=== PATIENT | female | born 1985 | race Caucasian/White ===

== ENCOUNTER 2020-04-12 12:58 | Outpatient (CLI) | payer OTHER, SELFPAY ==
--- NOTE | ~2020-04-12 | MMUS_ITS ---
EXAMINATION: MM diagnostic nichole BI w keiry, US breast RT limited HISTORY: Right breast lump TECHNIQUE: ML, MLO and cc 3-D tomosynthesis images of both breasts were performed and synthetic 2-D i mages were generated. CAD analysis was submitted and interpreted. High resolution targeted right chris st ultrasound was performed. COMPARISON: None BREAST PARENCHYMAL COMPOSITION: There are scattered areas of fibroglandular density. FINDINGS: MAMMOGRAPHIC FINDINGS: . No suspicious mass, architectural distortion, malignant calcification, skin thickening or retractio n of either breast is evident. ULTRASOUND: 12:00 at area of complaint of palpable mass: Parallel circumscribed 2.6 x 8.3 x 4.5 mm complex mass w ithout internal vascularity or suspicious shadowing, having benign sonographic appearance. IMPRESSION: 1. Probable benign complex mass at 12:00 2. 6 month follow-up right targeted breast ultrasound examination is recommended. BI-RADS category 3, probably benign findings. Reviewed, dictated and finalized at location A. IMPRESSION: 1. Probable benign complex mass at 12:00 2. 6 month follow-up right targeted breast ultrasound examination is recommende d. BI-RADS category 3, probably benign findings.
== END 2020-04-12 12:59 | disposition home or self-care (01) ==
PROVIDERS: PCP Obstetrics & Gynecology; Visit Provider Obstetrics & Gynecology
DX: N63.10 Unspecified lump in the right breast, unspecified quadrant (principal)
CPT/HCPCS: 76642; 77062; 77066; G0279

== ENCOUNTER → 2021-07-02 02:03 | Outpatient (CLI) | payer OTHER, SELFPAY ==
[2021-07-02 17:39] LABS: SARS-CoV-2 RNA PCR Negative
== END ==
PROVIDERS: PCP Obstetrics & Gynecology; Visit Provider Obstetrics & Gynecology
DX: Z01.812 Encounter for preprocedural laboratory examination (principal); Z20.822 Contact with and (suspected) exposure to COVID-19
CPT/HCPCS: C9803; U0003; U0005

== ENCOUNTER 2021-07-05 00:45 | Day surgery (SDC) | payer OTHER, SELFPAY ==
[2021-07-02 13:11] VITALS: BMI 22.6
[2021-07-05 10:20] VITALS: BP 110/76; PULSE 83; RESP 14; TEMP 37.1; O2SAT 100
[2021-07-05 10:32] VITALS: BMI 22.1
[2021-07-05] MEDS: ACETAMINOPHEN 500 MG TABLET 1000 MG PO (10:37)
[2021-07-05] MEDS: LACTATED RINGERS 1,000 ML 30 ML IV CONT (10:40)
--- NOTE | 2021-07-05 11:13 | WPDANESEPPF ---
Anes - Initial Pre Proc Eval Procedure: Operation Date: 07/05/21 12:00 Proposed Procedures p Hysteroscopy with Berenice Ablation - Mahendra Lindsey MD Date/Time: 07/05/21 11:13 Surgeon: Mahendra Lindsey MD Pre Op Diagnosis: menorrhagia Patient Data Age: 35 Gender: F Height: 1.49 m Weight: 48.8 kg Last Vital Signs Temp 37.1 C 07/05/21 10:20 Pulse 83 07/05/21 10:20 Resp 14 07/05/21 10:20 BP 110/76 07/05/21 10:20 Pulse Ox 100 07/05/21 10:20 Allergies Allergy/AdvReac Type Severity Reaction Status Date / Time No Known Allergies Allergy Unknown Verified 07/05/21 10:31 Home Medications Medication Instructions Recorded Confirmed Type No Home Medications 07/02/21 07/02/21 History Patient hx anesthesia problems: none Family hx anesthesia problems: none PMFSH Past Medical History Medical History (Updated 07/05/21 @ 11:14 by Jj Fox DO) Anemia Anxiety Surgical History Surgical History (Updated 07/05/21 @ 11:14 by Jj Fox DO) History of tubal ligation Social History Social History Smoking packs per day: 1 Smoking cigarettes per day: 20.0 Years smoked: 16 Smoking pack-years: 16.00 Smoking status: Current every day smoker Tobacco type: cigarettes Second hand tobacco smoke exposure: Yes Alcohol use details: occasional Substance use: current Substance use type: marijuana Other substance usage details: occasional Last use: 06-11-2021 Living arrangements: with family Spiritual care concerns: No Anes - Eval Final PreProcedure Day of Procedure 07/05/21 11:13 Patient weight: normal Heart: regular rate and rhythm Lungs: clear to auscultation and normal air movement Airway: Mallampati scale class II Neurological: alert and oriented Last oral intake: >/= 8 hours ASA classification: II Emergent: no Anesthetic plan: proceed Anesthesia type and monitoring: general GIVS and standard monitoring Informed Consent: The patient's anesthetic plan and its attendant risks and benefits were discussed with the patient/family/POA. Questions were solicited and answers provided to the satisfaction of the patient/family/POA.
--- NOTE | 2021-07-05 12:00 | WPDHPUPDATE1 ---
History and Physical Update Update Date/Time: 07/05/21 12:00 History and Physical has been reviewed, including an updated exam of the patient. There are NO changes in the patient's condition. Risks, benefits, and alternatives have been discussed and questions answered. Patient agrees to proceed with procedure.
[2021-07-05 12:43] VITALS: BP 121/81; PULSE 75; RESP 18; O2SAT 100
--- NOTE | 2021-07-05 13:00 | W.PM.PROC2 ---
Procedure Note - Detailed Date of Procedure 07/05/21 Pre-op Diagnosis menorrhagia Post-op Diagnosis same Procedure Performed endometrial ablation with hysteroscopy d&c Surgeon Mahendra Lindsey MD Anesthesia MAC Indications Severe menorrhagia Findings Normal vulva vagina and cervix. Normal endometrium. Description of Procedure The patient was taken to the operating room. She was prepped and draped in the dorsal lithotomy position after induction of mac anesthesia. A speculum was placed in the vagina. Cervix grasped with a tenaculum. The cervix was dilated to about 1 cm. The hysteroscope was inserted. The above findings were noted. Endometrial curettage was performed with a medium-size curette. All surfaces of the endometrium were affected by the curettage. The specimens were collected and sent to pathology. Measurements were taken of the uterus and cervix. The uterine length was then entered into the hand piece of the Berenice device. The device was inserted into the intrauterine cavity. The array of the device was expanded. The balloon cuff was inflated. A good seal was achieved. The energy and safety cycles were initiated and completed. The array was collapsed and the instrument was withdrawn after deflating the balloon cuff. Hysteroscope was reinserted. Above findings were noted. The hysteroscope was removed. The patient tolerated the procedure well. The speculum and tenaculum were removed. She was taken to recovery in stable condition. Sponge lap and needle counts were correct x2. Estimated Blood Loss -5.0 Pathology yes Complications No immediate complications Condition stable Disposition same day
[2021-07-05] MEDS: oxyCODONE HCL (*CRX) 5 MG TAB IR PO (13:11)
[2021-07-05 13:15] VITALS: BP 140/90; PULSE 62; RESP 20
[2021-07-05] MEDS: fentaNYL CITRATE INJ (*CRX) 100 MCG/2 ML VIAL 25 MCG IV PUSH ×4 (13:42→14:07)
[2021-07-05 13:45] VITALS: BP 126/96; PULSE 64; RESP 20
[2021-07-05 14:15] VITALS: BP 143/88; PULSE 66; RESP 20
== END 2021-07-05 14:24 | disposition home or self-care (01) ==
PROVIDERS: Visit Provider Obstetrics & Gynecology
PROC: 0U5B8ZZ Destruction of Endometrium, Via Natural or Artificial Opening Endoscopic (ICD-10-PCS; CPT 58563; principal; 2021-07-05 12:00)
DX: N92.0 Excessive and frequent menstruation with regular cycle (principal); D64.9 Anemia, unspecified; F41.8 Other specified anxiety disorders; F12.90 Cannabis use, unspecified, uncomplicated; F17.210 Nicotine dependence, cigarettes, uncomplicated
CPT/HCPCS: 58563; 88305; A9270; J2250; J2405; J2704; J3010; J7030; J7120

== ENCOUNTER 2025-06-30 19:27 | Emergency (ER) | payer MEDICAID, SELFPAY ==
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
--- OUTSIDE RECORDS SUMMARY | 2025-06-30 19:29 | XMS_ITS | Clinical Summary ---
Author Organization [facility] Last Size Address [address] [place] [address] Care Team Providers Care Quarter Backer Name Role Phone Unavailable Primary Care Provider Unavailabl e Source Comments [facility] Last Size,non-owned Affiliates and Associated Physician Practices is amultiple site organization consisting of ambulatory clinics and hospital sitesin [place], [place], [place]. This disclosure is being madepursuant to the Care Everywhere program and may not contain all information available regarding this patient. Last updated 18.[employer] Last Size Allergies No known active allergies Medications * Be aware that medications may not be up to date on this document. Alwaysverify current medications with the patient. Vit-Fe Fumarate-FA ( VITAMIN) 28-0.8 MG tablet Take 1 tablet by mouth once daily Active gabapentin (NEURONTIN) 300 MG capsule Take 300 mg by mouth 3 times daily Active sertraline (ZOLOFT) 100 MG tablet Take 150 mg by mouth once daily Active Active Problems Problem Noted Date Diagnosed Date Polyhydramnios, antepartum complication 04/01/20 18 Encounter for supervision of normal first in third trimester 04/01/2018 Social History Tobacco Use Types Packs/Day Years Used Date Smoking Tobacco: Never Assessed Comments No Sex and Gender Information Value Date Recorded Sex Assigned at Not on file Legal Sex Female 2:01 PM CDT Gender Identity Not on file Sexual Orientation Not on file Last Filed Vital Signs Vital Sign Reading Time Taken Comments Blood Pressure 117/62 04/20/2018 12:56 PM CDT Pulse 95 04/20/2018 12:56 PM CDT Temperature - - Respiratory Rate - - Oxygen Saturation - - Inhaled Oxygen Concentration - - Weight - - Height - - Body Mass Index - - Plan of Treatment Health Maintenance Due Date Last Done Comments HIV SCREENING 2001 HEPATITIS C SCREENING 11/03/2004 DTAP/TDAP/TD VACCINES (1 - Tdap) 2005 HEPATITIS B VACCINE (1 of 3 - 19+ 3-dose series) 2005 HPV VACCINE (1 - 3-dose SCDM series) 2013 COVID-19 VACCINE (1 - 2023-2 5 season) 2024 DEPRESSION SCREENING 11/23/2024 INFLUENZA VACCINE (#1) 2025 ZOSTER VACCINE (1 of 2) 2036 HIB VACCINE Aged Out No longer eligi ble based on patient's age to complete this topic MENINGOCOCCAL (Group B) VACC INE SHARED DECISION-MAKING Aged Out No longer eligibl e based on patient's age to complete this topic MENINGOCOCCAL GROUPS A/C/Y/W VACCINE Aged Out No longer eligible b ased on patient's age to complete this topic PNEUMOCOCCAL VACCINE Aged Out No long er eligible based on patient's age to complete this topic Insurance
--- OUTSIDE RECORDS SUMMARY | 2025-06-30 19:29 | XMS_ITS | Clinical Summary ---
Author Organization [facility] Address [address] [place] [address] Care Team Providers Care Chief Passenger Ship Steward/Stewardess Name Role Phone Unavailable Primary Care Provider Unavailabl e Social History Tobacco Use Types Packs/Day Years Used Date Smoking Tobacco: Never Assessed Comments Unknown Sex and Gender Information Value Date Recorded Sex Assigned at Not on file Legal Sex Female 4:40 PM CDT Gender Identity Not on file Sexual Orientation Not on file Plan of Treatment Health Maintenance Due Date Last Done Comments Cervical Cancer Screening Pa p Smear (Age 30 to 64) Every 3 Years 1986 Annual Physical 1989 Hepatitis C 2004 DTaP, Tdap and Td Vaccines ( 1 - Tdap) 2005 Hepatitis B Vaccines (1 of 3 - 19+ 3-dose series) 2005 HPV Vaccines (1 - 3-dose SCD M series) 2013 Cervical Cancer Screening Pa p with HPV Testing (Age 30 to 64) Every 5 Years 2016 Cervical Cancer Screening with HPV 2016 COVID-19 Vaccine (2023-2 5 season) 2024 Meningococcal B Vaccine Aged Out No l onger eligible based on patient's age to complete this topic Meningococcal Vaccine Aged Out No chetna skip eligible based on patient's age to complete this topic Pneumococcal Vaccine: Pediat rics (0 to 5 Years) and At-Risk Patients (6 to 49 Years) Aged Out No longer eligible b ased on patient's age to complete this topic RSV Immunizations Under 20 Months Aged Out No longer eligible based on patient's age to complete this topic Advance Directives Documents on File Type Date Recorded Patient Senior Court Office Assistant Expl anation Advance Directives and Living Will 01/04/2016 12:00 AM ADVANCED DIRECTIVES
--- OUTSIDE RECORDS SUMMARY | 2025-06-30 19:29 | XMS_ITS | Patient Health Record ---
Author Organization [facility] [employer] Address [address] [facility] [address] [place] [address] Care Team Providers Care Medical/Surgery Registered Nurse Name Role Phone Shira Solano Unavailable [phone] Reason For Referral No Information Medications Medication SIG (Take, Route, Frequency, Duration) Notes Start Date End Date Status Escitalopram Oxalate 10 MG Oral Active Acetaminophen-Codeine #3 300-30 MG Oral Active Penicillin V Potassium 500 MG Oral Active Plan Of Treatment No Information
--- OUTSIDE RECORDS SUMMARY | 2025-06-30 19:29 | XMS_ITS ---
Author Organization [facility] Address [address] [place] [address] Care Team Providers Care Lead Investigator Name Role Phone Andrew Alvarez Primary Care Provider [facility] [email or web address], [facility] Unavailable U rose marieailDonato Diaz Unavailable [phone] REASON FOR VISIT Weight Concerns Social History Sex Assigned At : Social History Observation Description Sex Assigned At Female Encounters Encounter Location Date Provider Diagnosis [address] [address] 09/08/2024 Donato Delacruz Plan Of Treatment No Information Progress Notes * Gila NAVADOB: 6 (39 yo F)Acc No.[id number]:09/08/2024 UNLOCKED PROGRESS NOTE Progress Notes Patient: Gila LINARES Provider: Jose Luis Delacruz :1985 A ge:38 Y S ex:Female Date:09/08/2024 Address:[address] [id number] Pcp:Andrew Alvarez Subjective: * Chief Complaints: * 1 . Weight Concerns. * Medical History: Objective: * Vitals: Assessment: Plan: * Treatment: * * Electronic signature of Shamir Delacruz , [id number] on 06/30/2025 at 07:29 PM CDT Sign off status: Pending * Provider: Jose Luis Delacruz Date: 1 Generated for Tiffany roldan/Adams/eTransmitting on: 0 06/30/2025 07:29 PM CDT
[2025-06-30 19:32] VITALS: BP 152/94; PULSE 104; RESP 20; TEMP 36.8; O2SAT 99
--- NOTE | 2025-06-30 19:35 | ED_ITS ---
HPI - Skin/Abscess/Foreign Bdy General Chief complaint: Skin/Abscess/Foreign Body Stated complaint: poison aaliyah Time Seen by Provider: 06/30/25 19:35 Source: patient Mode of arrival: ambulatory Limitations: no limitations History of Present Illness HPI narrative: 39-year-old female presents with complaint of poison aaliyah rash for 3 days. Patient applying calamine lotion with no relief. Reports poison aaliyah to entire body. All systems reviewed and negative except as noted above. Related Data Allergies Allergy/AdvReac Type Severity Reaction Status Date / Time No Known Allergies Allergy Unknown Verified 07/05/21 10:31 [facility] Past Medical History Medical History (Updated 06/30/25 @ 19:41 by Lorrie Acosta NP) Anxiety Anemia Surgical History Surgical History (Updated 07/05/21 @ 11:14 by Jj Fox DO) History of tubal ligation Social History Social History Smoking packs per day: 1 Smoking cigarettes per day: 20.0 Years smoked: 16 Smoking pack-years: 16.00 Smoking status: Current every day smoker Tobacco type: cigarettes Second hand tobacco smoke exposure: Yes Alcohol use details: occasional Substance use: current Substance use type: marijuana Other substance usage details: occasional Last use: 06-11-2021 Living arrangements: with family Spiritual care concerns: No Comments At time of signature, agree with nursing past medical, surgical, social and family history. There is no relevant family history pertinent to the presenting complaint. Exam Narrative: GENERAL: This is a well-nourished, well-developed patient, in no apparent distress. HEAD: normocephalic, atraumatic. EYES: PERRL. Sclera clear/white. Vision is grossly intact. EARS: External ears normal NOSE: External nose normal NECK: Neck supple, non-tender without lymphadenopathy, masses or thyromegaly. CARDIOVASCULAR: Regular rate and rhythm without murmurs, gallops, or rubs. RESPIRATORY: Clear to auscultation. Breath sounds equal bilaterally. No wheezes, rales, or rhonchi. SKIN: warm, Dry, intact, good texture and turgor. erythematous vesicular rash to all extremities, trunk, perineal area, both cheeks NEURO: awake, alert, and oriented to person, place and time. There were no obvious focal neurologic abnormalities. EXTREMITIES: No joint tenderness, effusion, or edema noted. Course Course Level of Care: [facility] Visit Vital Signs Vital signs: Vital Signs Temperature 36.8 C 06/30/25 19:32 Pulse Rate 104 H 06/30/25 19:32 Respiratory Rate 20 06/30/25 19:32 Blood Pressure 152/94 H 06/30/25 19:32 Pulse Oximetry 99 06/30/25 19:32 Oxygen Delivery Room Air 06/30/25 19:32 Temperature 36.8 C 06/30/25 19:32 Pulse Rate 104 H 06/30/25 19:32 Respiratory Rate 20 06/30/25 19:32 Blood Pressure 152/94 H 06/30/25 19:32 Pulse Oximetry 99 06/30/25 19:32 Oxygen Delivery Room Air 06/30/25 19:32 reviewed MDM - Skin/Abscess/Foreign Bdy MDM Narrative Medical decision making narrative: pt given solumedrol IM at [facility]. Will start prednisone taper tomorrow morning. well appearing, nontoxic. Discharge Plan Discharge Clinical Impression: Dermatitis due to plants, including poison aaliyah, sumac, and oak Patient Disposition: Home Condition: Stable Instructions: Poison Aaliyah (ED) Additional Instructions: Take medications as prescribed. Start oral prednisone tomorrow. Hydroxyzine may cause drowsiness. Do not drive while taking this medication. Follow-up with your doctor if symptoms are not improving. Patient Language: Citizen Of [place] Prescriptions: New prednisone 10 mg tablet See Rx Instructions .ROUTE .COMPLEX Qty: 42 0RF Rx Instructions: Take 6 tablets for 2 days Take 5 tablets for 2 days Take 4 tablets for 2 days Take 3 tablets for 2 days Take 2 tablets for 2 days Take 1 tablet for 2 days triamcinolone acetonide 0.1 % cream 1 applic topical BID PRN (Reason: poison aaliyah) Qty: 30 0RF Rx Instructions: Apply sparingly to affected area. Do not apply to face. hydroxyzine HCl 10 mg tablet 10 mg PO Q6-8H PRN (Reason: itching) Qty: 30 0RF Follow-up/Referrals: PHYSICIAN,OPERATIONS VICE PRESIDENT [Primary Care Provider] - Time of Disposition: 19:42
== END 2025-06-30 20:08 | disposition home or self-care (01) ==
PROVIDERS: Emergency Provider Nurse Practitioner Family
DX: L23.7 Allergic contact dermatitis due to plants, except food (principal); F17.210 Nicotine dependence, cigarettes, uncomplicated; F41.9 Anxiety disorder, unspecified
CPT/HCPCS: 96372; 99213; G0463; J2919

== ENCOUNTER 2025-07-04 19:49 | Emergency (ER) | payer MEDICAID, SELFPAY ==
--- OUTSIDE RECORDS SUMMARY | 2025-07-04 19:50 | XMS_ITS | Patient Health Record ---
Author Organization [facility] Address [address] [place] [address] Care Team Providers Care Chief Crew Scheduler Name Role Phone Andrew Alvarez Primary Care Provider Intrinsity [facility], [facility] Unavailable U deyanira DelacruzDucin Unavailable [phone] VikasJanny Unavailable [phone] Lisa Gonzalez Unavailable [phone] Allergies Allergen (clinical drug ingredient) Drug/Non Drug [...] neg OXY neg PCP neg BUP POS 12 Panel Urine Drug Screen Reviewed date:09/28/2024 03:32:30 PM Interpretation: Performing Lab: Notes/Report: THC POS JERZY POS MOP (OPI) neg AMP neg MET neg BAR neg BZO neg MDMA neg MTD neg OXY neg PCP neg BUP neg Test, Urine Reviewed date:08/11/2024 09:17:32 AM Interpretation: Performing Lab: Notes/Report: Test, Urine Neg Negative - Negative 12 Panel Urine Drug Screen Reviewed date:08/11/2024 08:44:04 AM Interpretation: Performing Lab: Notes/Report: THC POS JERZY POS MOP (OPI) NEG AMP NEG MET NEG BAR NEG BZO NEG MDMA NEG MTD NEG OXY NEG PCP NEG BUP POS Medication Assisted Treatmen t (MAT) Buprenorphine, Norbuprenorphine, and Naloxone MS Confirmation, Urine Reviewed date:09/12/2024 08:42:20 AM Interpretation: Performing Lab:[facility], [address] [facility], Phone - [phone], Director - Rodrick Notes/Report: Creatinine 118 Testing Threshold: buprenorphine, 1.0 ng/mL norbuprenorphine, 5.0 ng/mL naloxone, 10 ng/mL This test was developed and its performance characteristics determined by [facility]. It has not been cleared or approved by the Food and Drug Administration. REFERENCE RANGE: Ref Range>=20 BUPRENORPHINE ++POSITIVE++ Buprenorphine 62 Norbuprenorphine 36 N/B Ratio 0.59 >=0.3 OPIATE ANTAGONIST ++POSITIVE++ Naloxone 481 Reason For Referral No Information Medications Medication [...] believe in God, but don't go to taoism Other Social History - Oldest of 10 [...] or Therapist - Used to go to [place] in [phone] Psychiatric Diagnosis(es) - Depression, anxiety, OUD Past [...] believe in God, but don't go to taoism Other Social History - Oldest of 10 [...] or Therapist - Used to go to [place] in [phone] Psychiatric Diagnosis(es) - Depression, anxiety, OUD Past [...] W/U Status Risk Notes Problem Tobacco user (485279892) Nicotine dependence, unspecified, uncomplicated (F17.200) Active confirmed Problem Chronic pain (53283645) Other chronic pain (G89.29) Active confirmed Problem Tobacco dependence (10930499) Tobacco dependence (F17.200) Active confirmed Problem Posttraumatic stress disorder (85061734) PTSD (post-traumatic stress disorder) (F43.10) Active confirmed Problem Generalized anxiety disorder (16898758) ROWAN (generalized anxiety disorder) (F41.1) Active confirmed Problem Cocaine abuse (32251891) Cocaine abuse (F14.10) Active confirmed Problem Major depressive disorder (739175390) MDD (major depressive disorder) (F32.9) Active confirmed Problem Obese class I (finding) (082635032500205) Obesity (BMI 30.0-34.9) (E66.9) Active confirmed Problem Opioid use disorder (6759648534) Opioid use disorder (F11.99) Active confirmed Problem Opioid use disorder (9233953718) Opioid use disorder (F11.90) Active confirmed Vital Signs Heart Rate 76 /min 09/28/2024 Temperature 98.5 degrees Fahrenheit 09/06/2024 Respiratory Rate 16 /min 09/28/2024 Blood pressure diastolic 80 mm Hg 09/28/2024 Oximetry 99 % 09/28/2024 Height 58 in 09/28/2024 Blood pressure systolic 110 mm Hg 09/28/2024 Weight 91.8 lbs 09/28/2024 BMI 19.18 kg/m2 09/28/2024 Encounters Encounter Location Date Provider Diagnosis [facility] [address] [address] 08/11/2024 Lisa Gonzalez Opioid use disorder F11.99 and Nicotine dependence, unspecified, uncomplicated F17.[address] [address] 09/06/2024 Lisa Gonzalez Opioid use disorder F11.99 and Nicotine dependence, unspecified, uncomplicated F17.[address] [address] 09/07/2024 Janny Bean MDD (major depressiv e disorder) F32.9 ; ROWAN (generalized anxiety disorder) F41.1 ; PTSD (post-traumatic stress disorder) F43.10 ; Opioid use disorder F11.90 ; Nicotine dependence, unspecified, uncomplicated F17.200 and Medication management Z79.[address] [address] 09/28/2024 Donato Delacruz Opioid use disorder F11.99 ; Nicotine dependence, unspecified, uncomplicated F17.200 and Cocaine abuse F14.[address] [address] 08/15/2024 Lisa Gonzalez [address] [address] 09/07/2024 Andrew Alvarez [address] [address] 09/07/2024 Andrew Alvarez Contact with and (suspected) exposure to other communicable diseases Z20.[address] [address] 09/07/2024 Janny Bean Assessments Encounter Date Diagnosis [...] or be administered own oral medications per [facility] protocols. Provided informed consent with understanding of [...] possible bipolar disorder - told while in [facility] anxiety sciatica opioid use disorder Surgical History Surgery Date(Month/Year) C- section 2012 c section 2008 C section 2018 Hospitalization History Reason Date(Month/Year) 2nd degree cast to back 2013
--- OUTSIDE RECORDS SUMMARY | 2025-07-04 19:50 | XMS_ITS | Clinical Summary ---
Author Organization [facility] Address [address] [place] [address] Care Team Providers Care Resolution Analyst Name Role Phone Unavailable Primary Care Provider [...] Documents on File Type Date Recorded Patient Back Winder Expl anation Advance Directives and Living Will 01/04/2016 12:00 AM ADVANCED DIRECTIVES
--- OUTSIDE RECORDS SUMMARY | 2025-07-04 19:51 | XMS_ITS ---
Author Organization [facility] Address [address] [place] [address] Care Team Providers Care Public Relations Supervisor Name Role Phone Andrew Alvarez Primary Care Provider [facility], [facility] Unavailable U rose marieailDonato Diaz Unavailable [phone] REASON FOR VISIT Weight Concerns Social History Sex Assigned At : Social History Observation Description Sex Assigned At Female Encounters Encounter Location Date Provider Diagnosis [address] [address] 09/08/2024 Donato Delacruz Plan Of Treatment No Information Progress Notes * Gila NAVADOB: 6 (39 yo F)Acc No.[id number]:09/08/2024 UNLOCKED PROGRESS NOTE Progress Notes Patient: Gila LINARES Provider: Jose Luis Delacruz :1985 A ge:38 Y S ex:Female Date:09/08/2024 Address:[address] [id number] Pcp:Andrew Alvarez Subjective: * Chief Complaints: * 1 . Weight Concerns. * Medical History: Objective: * Vitals: Assessment: Plan: * Treatment: * * Electronic signature of Shamir Delacruz , [id number] on 07/04/2025 at 07:50 PM CDT Sign off status: Pending * Provider: Jose Luis Delacruz Date: 1 Generated for Tiffany roldan/Adams/eTransmitting on: 0 07/04/2025 07:50 PM CDT
--- OUTSIDE RECORDS SUMMARY | 2025-07-04 19:51 | XMS_ITS | Patient Health Record ---
Author Organization [facility] As [employer] Address [address] [facility] [address] [place] [address] Care Team Providers Care Rewards Consultant Name Role Phone Shira Sloano Unavailable [phone] Reason For Referral No Information Medications Medication SIG (Take, Route, Frequency, Duration) Notes Start Date End Date Status Escitalopram Oxalate 10 MG Oral Active Acetaminophen-Codeine #3 300-30 MG Oral Active Penicillin V Potassium 500 MG Oral Active Plan Of Treatment No Information
--- OUTSIDE RECORDS SUMMARY | 2025-07-04 19:51 | XMS_ITS | Clinical Summary ---
Author Organization [facility] [employer] Address [address] [place] [address] Care Team Providers Care Target Aircraft Controller Name Role Phone Unavailable Primary Care Provider Unavailabl e Source Comments [facility] [employer],non-owned Affiliates and Associated Physician Practices is amultiple site organization consisting of ambulatory clinics and hospital sitesin [place], [place], [place] and [place]. This disclosure is being madepursuant to the Care Everywhere program and may not contain all information available regarding this patient. Last updated 18.Desti [employer] Allergies No known active allergies Medications * [...]
--- NOTE | 2025-07-04 19:52 | ED_ITS ---
HPI - General Adult General Chief complaint: Skin/Abscess/Foreign Body Stated complaint: rash Time Seen by Provider: 07/04/25 19:52 Source: patient Mode of arrival: ambulatory Limitations: no limitations History of Present Illness HPI narrative: 39 y/o female presented for c/o poison sumac rash for one week. States she was in a bikini doing yard work and did not know she was exposed to poison sumac. Patient was seen in clinic for the same on 06/30. She was given injection of steroid at this time. She says I am miserable. Continues to endorse itching to the arms, torso, and legs. Pt states she did not fill the prescriptions prescribed on 06/30 due to not having insurance. Related Data Allergies Allergy/AdvReac Type Severity Reaction Status Date / Time No Known Allergies Allergy Unknown Verified 07/04/25 20:06 Review of Systems Review of Systems: CONSTITUTIONAL: Denies body aches, fever, chills, or sweats. EYES: Denies visual changes, redness, or discharge. ENT: Denies rhinorrhea, congestion CARDIOVASCULAR: Denies chest pain, palpitations, or edema. RESPIRATORY: Denies cough or dyspnea. GASTROINTESTINAL: Denies abdominal pain, nausea, vomiting, or diarrhea. SKIN: reports rash MUSCULOSKELETAL: Denies back pain, joint pain, or myalgia. NEUROLOGIC: Denies headache, numbness, tingling, or weakness. [facility] Past Medical History Medical History (Updated 07/04/25 @ 20:04 by Janny Boothe APRN) Anxiety Anemia Surgical History Surgical History (Updated 07/05/21 @ 11:14 by Jj Fox DO) History of tubal ligation Social History Social History Smoking packs per day: 1 Smoking cigarettes per day: 20.0 Years smoked: 16 Smoking pack-years: 16.00 Smoking status: Current every day smoker Tobacco type: cigarettes Second hand tobacco smoke exposure: Yes Alcohol use details: occasional Substance use: current Substance use type: marijuana Other substance usage details: occasional Last use: 06-11-2021 Living arrangements: with family Spiritual care concerns: No Comments At time of signature, I have reviewed and agree with nursing past medical, surgical, social and family history unless otherwise noted. Please see nursing chart for further information. There is no relevant family history pertinent to the presenting complaint Exam Narrative: GENERAL: Well-appearing HEAD: Normocephalic, atraumatic. EYES: conjunctivae clear, and EOMI. ENT: Mucous membranes moist. Oropharynx without edema, erythema or lesions. NECK: Supple. No lymphadenopathy CHEST: Clear to auscultation. HEART: Regular rate and rhythm. SKIN: Warm, dry. erythematous vesicular rash to all extremities, trunk, perineal area, buttocks. NEURO: Alert and oriented x3. Course Course Emergency Course: Patient is aware of diagnosis, understands and agrees to treatment plan. Anticipatory guidance given. Patient agrees to follow-up as directed and is aware of reasons to seek care at the emergency department. Portions of this record may have been created with voice recognition software Level of Care: Express Care Visit Vital Signs Vital signs: Vital Signs Temperature 98.4 F 07/04/25 19:58 Pulse Rate 90 07/04/25 19:58 Respiratory Rate 16 07/04/25 19:58 Blood Pressure 125/86 07/04/25 19:58 Pulse Oximetry 99 07/04/25 19:58 Oxygen Delivery Room Air 07/04/25 19:58 Temperature 98.4 F 07/04/25 19:58 Pulse Rate 90 07/04/25 19:58 Respiratory Rate 16 07/04/25 19:58 Blood Pressure 125/86 07/04/25 19:58 Pulse Oximetry 99 07/04/25 19:58 Oxygen Delivery Room Air 07/04/25 19:58 Reviewed Medical Decision Making MDM Narrative Medical decision making narrative: Discussed physical exam findings. patient states I am miserable. She is advised to fill the prescriptions that were prescribed to her on 06/30. Advised supportive measures and signs/symptoms to go to the ER. Pt is appropriate for outpt treatment and f/u. Differential Diagnosis Differential Diagnosis: Viral exanthema, contact dermatitis, allergic dermatitis, eczema, urticaria, insect bites, impetigo, tinea, folliculitis Vital Signs Vital Signs: Vital Signs Temperature 98.4 F 07/04/25 19:58 Pulse Rate 90 07/04/25 19:58 Respiratory Rate 16 07/04/25 19:58 Blood Pressure 125/86 07/04/25 19:58 Pulse Oximetry 99 07/04/25 19:58 Oxygen Delivery Room Air 07/04/25 19:58 Temperature 98.4 F 07/04/25 19:58 Pulse Rate 90 07/04/25 19:58 Respiratory Rate 16 07/04/25 19:58 Blood Pressure 125/86 07/04/25 19:58 Pulse Oximetry 99 07/04/25 19:58 Oxygen Delivery Room Air 07/04/25 19:58 Discharge Plan Discharge Clinical Impression: Contact dermatitis Patient Disposition: Home Condition: Stable Instructions: Antibiotic Form, Contact Dermatitis (ED) Additional Instructions: Take steroids and cream as previously prescribed. Benadryl every 8 hours as needed. Or you can take Zyrtec according to package directions Cool compresses to the sites of itching, avoid hot water. Avoid scratching to reduce the risk of infection Follow up with your primary care provider as needed Go to the ER for worsening symptoms or concerns (lip, tongue, throat swelling/itching, trouble breathing etc) Patient Language: Mongolian Prescriptions: No Action prednisone 10 mg tablet See Rx Instructions .ROUTE .COMPLEX Qty: 42 0RF Rx Instructions: Take 6 tablets for 2 days Take 5 tablets for 2 days Take 4 tablets for 2 days Take 3 tablets for 2 days Take 2 tablets for 2 days Take 1 tablet for 2 days triamcinolone acetonide 0.1 % cream 1 applic topical BID PRN (Reason: poison rukhsana) Qty: 30 0RF Rx Instructions: Apply sparingly to affected area. Do not apply to face. hydroxyzine HCl 10 mg tablet 10 mg PO Q6-8H PRN (Reason: itching) Qty: 30 0RF Follow-up/Referrals: PHYSICIAN,BRIDGE BUILDER [Primary Care Provider] - Stand Alone Forms: Work/School Release IP Time of Disposition: 20:04
[2025-07-04 19:58] VITALS: BP 125/86; PULSE 90; RESP 16; TEMP 36.9; O2SAT 99
== END 2025-07-04 20:16 | disposition home or self-care (01) ==
PROVIDERS: Emergency Provider Nurse Practitioner Family
DX: L25.9 Unspecified contact dermatitis, unspecified cause (principal); F17.210 Nicotine dependence, cigarettes, uncomplicated
CPT/HCPCS: 99211; G0463

== ENCOUNTER 2025-11-18 17:16 | Emergency (ER) | payer OTHER, SELFPAY ==
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
--- OUTSIDE RECORDS SUMMARY | 2025-11-18 17:17 | XMS_ITS | Clinical Summary ---
Author Organization [facility] [employer] Address [address] [place] [address] Care Team Providers Care Medical Numerical Control Operator Name Role Phone Unavailable Primary Care Provider Unavailabl e Source Comments [facility] [employer],non-owned Affiliates and Associated Physician Practices is amultiple site organization consisting of ambulatory clinics and hospital sitesin [place], [place], [place] and [place]. This disclosure is being madepursuant to the Care Everywhere program and may not contain all information available regarding this patient. Last updated 18.[employer] Allergies No known active allergies Medications * [...] VACCINE (1 - 3-dose SCDM series) 2013 DEPRESSION SCREENING 11/23/2024 COVID-19 VACCINE (1 - 2024-2 6 season) 2025 INFLUENZA VACCINE (#1) 2025 ZOSTER VACCINE (1 [...]
--- OUTSIDE RECORDS SUMMARY | 2025-11-18 17:17 | XMS_ITS | Clinical Summary ---
Author Organization [facility] Address [address] [place] [address] Phone Care Team Providers Care Home Demonstrator Name Role Phone Ronnie Pike MD Primary Care Provider [phone] Medications naproxen (NAPROSYN) 500 MG Tablet Take 1 Tablet by mouth 2 times daily as needed for Mild or more severe pain. 20 Tablet 07/27/2025 Active Social History Tobacco Use Types Packs/Day Years Used Date Smoking Tobacco: Every Day Cigarettes Smokeless Tobacco: Never Tobacco Cessation:Ready to Q uit: Not Asked; Counseling Given: Not Answered Comments Unknown Sex and Gender Information Value Date Recorded Sex Assigned at Not on file Legal Sex Female 1:13 PM CDT Gender Identity Not on file Sexual Orientation Not on file Last Filed Vital Signs Vital Sign Reading Time Taken Comments Blood Pressure 176/97 07/27/2025 1:18 PM CDT Pulse 80 07/27/2025 1:18 PM CDT Temperature 36.8 C (98.2 F) 07/27/2025 1:18 PM CDT Respiratory Rate 18 07/27/2025 1:18 PM CDT Oxygen Saturation 100% 07/27/2025 1:18 PM CDT Inhaled Oxygen Concentration - - Weight 50.7 kg (111 lb 12.4 oz) 07/27/2025 1:18 PM CDT Height 147.3 cm (4' 10) 07/27/2025 1:18 PM CDT Body Mass Index 23.36 07/27/2025 1:18 PM CDT Plan of Treatment Not on file Insurance MEDICAID A[employer]NA [facility] Care Teams Home Demonstrator Relationship Specialty Start Date End Date Ronnie Pike MD [address] [place] [address] [place] [id number] PCP - General Hand Bobbin Cleaner 07/27/25
--- OUTSIDE RECORDS SUMMARY | 2025-11-18 17:17 | XMS_ITS | Patient Health Record ---
Author Organization [facility] Address [address] [place] [address] Phone [phone] Care Team Providers Care Shuttle Fixer Name Role Phone Andrew Alvarez APRN Primary Care Provider [phone] [employer] Document Management software, [facility] Unavailable U navailable Allergies Allergen (clinical drug ingredient) Drug/Non Drug Allergy documented on EMR Reaction Allergy Type Onset Date Status No Known Drug Allergy Unknown Drug Allergy Active Reason For Referral No Information Medications Medication SIG (Take, Route, Frequency, Duration) Notes Start Date End Date Diagnosis (ICD Code) Status Nicotine Mini 4 MG Lozenge 1 lozenge as needed Mouth/Throat every 1-2 hours As needed for smoking cessation, up to 16 lozenges/day 08/11/2024 Nicotine dependence, unspecified, uncomplicated (ICD_10 - F17.200) Active Buprenorphine HCl-Naloxone HCl 8-2 MG Film 1 film under the tongue and allow to dissolve Sublingual 1 film in AM, 1.5 film in PM 09/06/2024 Opioid use disorder (ICD_10 - F11.90) Active Pregabalin 75 MG Capsule 1 capsule Orally twice a day; Duration: 30 days 09/07/2024 ROWAN (generalized anxiety disorder) (ICD_10 - F41.1) Active Sertraline HCl 50 MG Tablet 1 tablet Orally Once a day; Duration: 30 day(s) 09/07/2024 MDD (major depressive disorder) (ICD_10 - F32.9) Active Social History Tobacco Use: Social History Observation Description Date Details (start date - stop date) Current Smoker NA - NA Sex Observation Social History Observation Description Sex Observation Female Sexual Orientation Social History Observation Description Sexual Orientation Straight or heterose xual Gender Identity Social History Observation Description Gender Identity Female Social History Miscellaneous Social Info Question Answer Notes Method of learning: Preferred method of learning: Disc ussion Primary Social History Social Info Question Answer Notes Living Arrangement Living Arrangement: Independent Nilsa ing Is this a supportive environment? Yes Employment Status Employment Status: Unemployed Alcohol Use Alcohol Use Frequency: Never Tobacco Use: Social Info Question Answer Notes Dont use, Tobacco Use/Smoking Are you a current smo ker How many cigarettes a day do you smoke? - Tobacco Control (Standard) Tobacco use: Current smoker Section Notes: - [...] believe in God, but don't go to baptism Other Social History - Oldest of 10 [...] or Therapist - Used to go to [place] [id number] Psychiatric Diagnosis(es) - Depression, anxiety, OUD Past [...] Problems Problem Type SNOMED Code ICD Code Dates Problem Status W/U Status Risk Notes Problem Tobacco user (883686166) Nicotine dependence, unspecified, uncomplicated (F17.200) Added On:12/28 Active confirmed Problem Chronic pain (93244898) Other chronic pain (G89.29) Added On:09/07 Active confirmed Problem Tobacco dependence (80362749) Tobacco dependence (F17.200) Added On:06/11 Active confirmed Problem Posttraumatic stress disorder (99079100) PTSD (post-traumatic stress disorder) (F43.10) Added On:09/07 Active confirmed Problem Generalized anxiety disorder (53439312) ROWAN (generalized anxiety disorder) (F41.1) Added On:09/07 Active confirmed Problem Cocaine abuse (71629225) Cocaine abuse (F14.10) Added On:09/28 Active confirmed Problem Major depressive disorder (239960842) MDD (major depressive disorder) (F32.9) Added On:09/07 Active confirmed Problem Obese class I (finding) (567920347198275) Obesity (BMI 30.0-34.9) (E66.9) Added On:06/11 Active confirmed Problem Opioid use disorder (5013474733) Opioid use disorder (F11.99) Added On:11/27 Active confirmed Problem Opioid use disorder (2884731144) Opioid use disorder (F11.90) Added On:09/10 Active confirmed Plan Of Treatment No Information Medical (General) History Medical History History ICD Code depression possible bipolar disorder - told while in [facility] intermediate anxiety sciatica opioid use disorder Surgical History Surgery Date(Month/Year) C- section 2012 c section 2008 C section 2018 Hospitalization History Reason Date(Month/Year) 2nd degree cast to back 2013
--- OUTSIDE RECORDS SUMMARY | 2025-11-18 17:17 | XMS_ITS | Clinical Summary ---
Author Organization [facility] Address [address] [place] [id number] Care Team Providers Care Gradall Operator Name Role Phone Unavailable Primary Care [...] Cancer Screening with HPV 2016 COVID-19 Vaccine (2024-2 6 season) 2025 Influenza Adult (#1) 2025 Hepatitis A Vaccines Aged Out No long er eligible based on patient's age to complete this topic Meningococcal B Vaccine Aged Out No l [...] Documents on File Type Date Recorded Patient [employer] Expl anation Advance Directives and Living Will 01/04/2016 12:00 AM ADVANCED DIRECTIVES
--- OUTSIDE RECORDS SUMMARY | 2025-11-18 17:18 | XMS_ITS | Data Portability ---
Author Organization [facility] Address [address] [place] [address] [place] [address] Care Team Providers Care Construction Helper Name Role Phone DOROTA CULVER Primary Care Provider Assessment No assessment recorded. Plan of Treatment Reminders Order Date Submit Date Provider Last Modified By Organization Details Last Modified Time Details Appointments None recorded. Lab None recorded. Referral None recorded. Procedures None recorded. Surgeries None recorded. Imaging US, pelvis 2020 021 [email or web address] [place], [address], [place], [address], 15:33:00 US, transvagina l 2020 021 SUBHA [place], [address], [address], [place], [address], 16:03:28 Medication Orders None recorded. Patient TargetsNo targets recorded. Patient InstructionsNo instructions recorded. Reason for Referral None Reported. Results Created Date Observation Date Name Description Value Unit Range Abnormal Flag Note LastModifiedBy Organization Detail LastModifiedTime 05/31/2005/31/2021 CT/GC AND TRICH OMONA S VAGIN FREDY (RRNA ), SWAB chlamydia trachomatis, PCR Negati ve negati ve Not Available [facility] (Lab) [address], [place], [address], 06/03/2021 13:39:34 05/31/2005/31/2021 CT/GC AND TRICH OMONA S VAGIN FREDY (RRNA ), SWAB neisseria gonorrhoeae, PCR Negati ve negati ve Not Available [facility] (Lab) [address] [place], [address], 06/03/2021 13:39:34 05/31/20 21 05/31/2021 CT/GC AND TRICH OMONA S VAGIN FREDY (RRNA ), SWAB trichomonas vaginalis ribosomal RNA (rrna) Negati ve negati ve Not Available [facility] (Lab) [address] [facility], [place], [address], 06/03/2021 13:39:34 05/31/20 21 05/31/2021 IMAGE GUIDE D PAP AND HPV REGAR DLESS image guided Pap, HPV regardless of Pap result SEE RESULT S BELOW CASE REPOR T: Cytol ogy Gynec ologi tania Repor t Case: [id number] Autho dariela Provi elieser: Tatyana Lindsey MD Colle cted: 05/31 1340 Order ing Locat ion: [place] Patho log[facility] Recei olivia: 06/01 0102 First Scree n: Burak Raymond CT Speci men: Scree rich Pap - Image d, Cervi x STATE MENT OF ADEQU ACY: Satis facto ry for evalu ation Trans forma tion zone compo nent prese nt FINAL DIAGN OSIS: Negat keyon for Intra epith elial Lesio n or Taz erickson (NIL) Shift in boni sugge stive of bacte rial vagin osis Elect amanda self aubrey d by Burak Raymond CT on 2020 at 12:36 PM ----- ----- ----- ----- ----- ----- ----- ----- ----- ----- ----- ----- ----- ----- ----- ----- ----- ---- HPV RESUL TS: HPV mRNA E6/E7 : No HPV mRNA Detec royce NOTE: This high risk HPV mRNA assay detec ts fourt een high- risk HPV types (16, 18, 31, 33, 35, 39, 45, 51, 52, 56, 58, 59, 66, 68) witho ut diffe renti ation . CHART ABLE COMME NT: Note: This speci men was revie wed by a Cytot echno logis t and/o r Patho logis t (as indic ated in this repor t) after evalu ation using the Thinp rep Imagi ng Syste m. CLINI TANIA INFOR MATIO N: Menst rual Statu s: LMP (if appli cable ): 021 Clini tania Histo ry/Pr eviou s Pap: Type of Neopl maico (if appli cable ): Other Histo ry: Hormo thelma (if appli cable ): PAP EDUCA NAVARRO L NOTE: The Pap Test is a scree rich test with an inher ent false negat keyon rate. Liqui d-bas e sampl ing may decre ase, but will not elimi suzanna, false negat keyon resul ts. A negat keyon resul t does not precl ude the prese nce and/o r devel opmen t of disea se, since the prese nce of abnor mal cells in the sampl e depen ds on the locat ion of the lesio n and sampl ing techn ique. Rayne nued regul ar scree rich is the best metho d of cance r preve ntion . If repor royce cytol ogic findi ng do not corre late with physi tania and/o r histo rical findi ngs, furth er inves tigat ion is recom jessi d, as clini ginger staton nted. Not Available [facility] (Lab) [address], [place], [address], 06/03/2021 13:39:35 05/31/20 21 05/31/2021 DHEA SULFA TE DHEA-sulfate 93 ug/dL Femal e Range s Age(y ) Range (ug/d L) 10-15 34-28 0 15-20 65-36 8 20-25 148-4 07 25-35 99-34 0 35-45 61-33 7 45-55 35-25 6 55-65 19-20 5 65-75 9-246 > 75 12-15 4 Not Available [facility] (Lab) [address] [facility], [place], [address], 06/03/2021 21:51:07 05/31/20 21 05/31/2021 HEPAT ITIS B SURFA CE ANTIG EN hepatitis B surface antigen Non-re active non-re active This assay was perfo rmed using [employer] ratio n reage nts and test kits. Value s obtai kay with other assay metho ds or kits canno t be used inter yang eay . Not Available [facility] (Lab) [address] [facility], [place], [address], 06/03/2021 21:51:07 05/31/20 21 05/31/2021 HEPAT ITIS C ANTIB ZOEY SCREE N, REFLE X TO CONFI RMATI ON hepatitis C antibody Non-re active non-re active This assay was perfo rmed using [employer] ratio n reage nts and test kits. Value s obtai kay with other assay metho ds or kits canno t be used inter [facility] eay . Not Available [facility] (Lab) [address] [place], [address], 06/03/2021 21:51:08 05/31/20 21 05/31/2021 ESTRA DIOL estradiol 126.0 pg/mL This assay was perfo rmed using [employer] ratio n reage nts and test kits. Value s obtai kay with other assay metho ds or kits canno t be used inter [facility] . Femal e Estra diol Range s: Folli cular phase 12.4- 233 pg/mL Ovula tion phase 41.0- 398 pg/mL Lutea l phase 22.3- 341 pg/mL Postm enopa usal< 5-138 pg/mL Healt hy Pregn ant Women 1st Trime ster1 54-32 43 pg/mL 2nd Trime ster1 561-2 1280 pg/mL 3rd Trime ster8 525-> 11256 pg/mL Not Available [facility] (Lab) [address] [place], [address], 06/03/2021 21:51:08 05/31/20 21 05/31/2021 PROGE STERO NE progesterone 5.83 NG/mL 0.05-< 60.00 This assay was perfo rmed using [employer] ratio n reage nts and test kits. Value s obtai kay with other assay metho ds or kits canno t be used inter yang eay . Femal e Proge stero ne Range s: Folli cular phase 0.06- 0.89 ng/mL Ovula tion phase 0.12- 12.00 ng/mL Lutea l phase 1.83- 23.90 ng/mL Postm enopa usal< 0.05- 0.13 ng/mL Healt hy Pregn ant Women 1st Trime ster1 1.0-4 4.30 2nd Trime ster2 5.40- 83.30 3rd Trime ster5 8.70- 214.0 0 Not Available [facility] (Lab) [address] [place], [address], 06/03/2021 21:51:08 05/31/20 21 05/31/2021 PROLA CTIN prolactin, total 8.90 NG/mL 4.79-2 3.30 This assay was perfo rmed using [employer] ratio n reage nts and test kits. Value s obtai kay with other assay metho ds or kits canno t be used inter yang eably . Not Available [facility] (Lab) [address] [place], [address], 06/03/2021 21:51:09 05/31/20 21 05/31/2021 LH (LUTE NIZIN G HORMO NE) LH 8.9 mIU/m L This assay was perfo rmed using [employer] ratio n reage nts and test kits. Value s obtai kay with other assay metho ds or kits canno t be used inter yang eably . Femal es Mid-F ollic ular: 2.4-1 2.6 mIU/m L Mid-C ycle: 14.0- 95.6 mIU/m L Mid-L uteal : 1.0-1 1.4 mIU/m L Postm enopa use: 7.7-5 8.5 mIU/m L Not Available [facility] (Lab) [address], [place], [address], 06/03/2021 21:51:09 05/31/20 21 05/31/2021 FSH FSH 7.4 mIU/m L This assay was perfo rmed using [employer] ratio n reage nts and test kits. Value s obtai kay with other assay metho ds or kits canno t be used inter [facility] . Femal es Folli cular : 3.5-1 2.5 mIU/m L Ovula tion: 4.7-2 1.5 mIU/m L Lutea l: 1.7-7 .7 mIU/m L Postm enopa use: 25.8- 134.8 mIU/m L Not Available [facility] (Lab) [address], [place], [address], 06/03/2021 21:51:10 05/31/20 21 05/31/2021 TSH, REFLE X FREE T4 TSH 1.36 uIU/m L 0.30-5 .33 Not Available [facility] (Lab) [address] [place], [address], 06/03/2021 21:51:10 05/31/20 21 05/31/2021 HEMOG LOBIN A1C hemoglobin A1C 5.4 % 0-5.6 The Ameri can [employer] l[employer] iatio n recom mends that a prima ry goal of thera py delmiul d be a HBA1C of < 7% and that physi cians shoul d reeva luate the treat ment regim en in patie nts with HBA1C value s consi stent ly > 8%. <5.7% Connie l 5.7 - 6.4% Incre ased risk for diabe luis >=6.5 % Diagn ostic of diabe luis <7.0% Goal of thera py >8.0% Actio n deandrage sted Not Available [facility] (Lab) [address], [place], [address], 06/03/2021 21:51:10 05/31/20 21 05/31/2021 HUMAN SEX HORMO NE RADHA NG GLOBU SILVA sex hormone binding globulin 73.4 nmole s/L 18.2-1 35.5 Not Available [facility] (Lab) [address] [facility], [place], [address], 06/03/2021 21:51:11 05/31/20 21 05/31/2021 RPR SCREE N/REF BURTON TITER /FTA RPR screen Nonrea ctive nonrea ctive Not Available [facility] (Lab) [address] [facility], [place], [address], 06/03/2021 21:51:11 05/31/20 21 05/31/2021 HERPE S SIMPL EX VIRUS TYPE 2 SPECI FIC AB, IGG herpes simplex virus 2 IgG Negati ve negati ve Not Available [facility] (Lab) [address] [facility], [place], [address], 06/03/2021 21:51:11 05/31/20 21 05/31/2021 HERPE S SIMPL EX VIRUS TYPE 2 SPECI FIC AB, IGG herpes simples virus 2 IgG, quant <0.2 ai 0.0-0. 8 Not Available [facility] (Lab) [address] [facility], [place], [address], 06/03/2021 21:51:11 05/31/20 21 05/31/2021 HIV 1/2 ANTIG EN/AN TIBOD Y, REFLE X CONFI RMATI ON HIV Ag-Ab total quant 0.07 idx <1.00 Not Available [facility] (Lab) [address], [place], [address], 06/03/2021 21:51:12 05/31/20 21 05/31/2021 HIV 1/2 ANTIG EN/AN TIBOD Y, REFLE X CONFI RMATI ON HIV Ag-Ab total Non-re active non-re active Not Available [facility] (Lab) [address] [facility], [place], [address], 06/03/2021 21:51:12 05/31/20 21 05/31/2021 HIV 1/2 ANTIG EN/AN TIBOD Y, REFLE X CONFI RMATI ON HIV-1 antibody quant 0.03 idx <1.00 Not Available [facility] (Lab) [address] [facility], [place], [address], 06/03/2021 21:51:12 05/31/20 21 05/31/2021 HIV 1/2 ANTIG EN/AN TIBOD Y, REFLE X CONFI RMATI ON HIV-1 antibody Non-re active non-re active Not Available [facility] (Lab) [address] [facility], [place], [address], 06/03/2021 21:51:12 05/31/20 21 05/31/2021 HIV 1/2 ANTIG EN/AN TIBOD Y, REFLE X CONFI RMATI ON HIV-1 antigen (P24) quant 0.07 idx <1.00 Not Available [facility] (Lab) [address] [place], [address], 06/03/2021 21:51:12 05/31/20 21 05/31/2021 HIV 1/2 ANTIG EN/AN TIBOD Y, REFLE X CONFI RMATI ON HIV-1 antigen (P24) Non-re active non-re active Not Available [facility] (Lab) [address] [facility], [place], [address], 06/03/2021 21:51:12 05/31/20 21 05/31/2021 HIV 1/2 ANTIG EN/AN TIBOD Y, REFLE X CONFI RMATI ON HIV-2 antibody quant 0.05 idx <1.00 Not Available [facility] (Lab) [address], [place], [address], 06/03/2021 21:51:12 05/31/20 21 05/31/2021 HIV 1/2 ANTIG EN/AN TIBOD Y, REFLE X CONFI RMATI ON HIV-2 antibody Non-re active non-re active HIV testi ng is perfo rmed using Multi [employer] Immun oassa y techn ology . The final overa ll HIV Ag-Ab resul t is deter mined based on the final resul t for each indiv idual radha te. If any of the radha luis has 2 or more repli cates that are REACT KEYON, the final overa ll HIV Ag-Ab resul t is also React keyon. A Non-R eacti ve test resul t at any point in the inves tigat ion of indiv idual subje cts does not precl ude the possi bilit y of expos ure to or infec tion with HIV-1 and/o r HIV-2 . Non-R eacti ve resul ts can occur if the quant ity of marke r prese nt in the sampl e is below the detec tion limit s of the assay . React keyon speci mens must be inves tigat ed by addit ional , more speci fic suppl ement al tests . Speci men confi rmati on will be perfo rmed by the Ghost[employer] us HIV 1/2 Suppl ement al Assay . The perfo rmanc e of this assay has not been estab lishe d for neona luis and the assay shoul d not be used in indiv idual s young er than 2 years of age. Not Available [facility] (Lab) [address], [place], [address], 06/03/2021 21:51:12 05/31/20 21 05/31/2021 TESTO STERO NE, FREE( DIALY SIS) AND TOTAL (LC/M S/MS) testosterone , total 24 NG/dL 2-45 For addit ional infor matio n, pleas e refer to http: //[facility] stdia gnost ics.c om/fa q/Tot al Testo stero neLCM SMS (This link is being provi ded for infor matio nal/e ducat ional purpo ses only. ) This test was devel oped and its radha tical perfo rmanc e george cteri stics have been deter mined by [facility]. It has not been clear ed or appro olivia by the FDA. This assay has been valid ated pursu ant to the CLIA regul ation s and is used for clini tania purpo ses. Not Available [facility] (Lab) [address] [facility], [place], [address], 06/03/2021 21:51:12 05/31/2005/31/2021 TESTO STERO NE, FREE( DIALY SIS) AND TOTAL (LC/M S/MS) testosterone , free 1.9 pg/mL 0.1-6. 4 This test was devel oped and its radha tical perfo rmanc e egorge cteri stics have been deter mined by [facility]. It has not been clear ed or appro olivia by the FDA. This assay has been valid ated pursu ant to the CLIA regul ation s and is used for clini tania purpo ses. Perfo rming Organ izati on Chica rodarte n: Site ID: [id number] Name: [employer]-[place] Addre ss: [id number] [place] [address] Direc tor: Alyse bentley M.D. Not Available [facility] (Lab) [address], [place], [address], 06/03/2021 21:51:12 05/31/2005/31/2021 HEPAT ITIS B CORE, IGM hepatitis B core IgM antibody Negati ve negati ve Not Available [facility] (Lab) [address] [facility], [place], [address], 06/03/2021 21:51:13 06/04/2006/04/2021 US, pelvi s No observ ation record ed. [email or web address] [place] [address], [place], [address], 06/04/2021 16:03:40 06/04/2006/04/2021 US, trans vagin al No observ ation record ed. [email or web address] [place] [address], [place], [address], 06/04/2021 16:03:28 06/04/20 21 06/04/2021 US, pelvi s No observ ation record ed. [email or web address] [address], [place], [address], 06/04/2021 15:36:15 Result Notes None recorded. Problems Name Problem SNOMED Code Status Onset Date Resolution Date Notes Provider Name and Address Organization Details Recorded Time Uterine size for dates discrepa ncy Completed 201605/31/2021 Uterine size-noris e discrepa ncy, first trimeste r;Record ed Elsewher e: No Locat ion: [facility] S ource: EHR Education Program Specialist clive: N Tre ce ID: [id number] Jesus lable Time: 03:30:00 PM Gretcheneusebia Sewell [facility] 1 11:06:09 Pregnanc y detectio n examinat ion Completed 201605/31/2021 Encounte r for pregnanc y test, result positive ;Recorde d Elsewher e: No Locat ion: [facility] S ource: EHR Education Program Specialist clive: N Tre ce ID: [id number] Jesus lable Time: 02:45:00 PM Gretcheneusebia Sewell [facility] 11:03:46 Gestatio n less than 9 weeks [id number] Completed 201605/31/2021 Less than 8 weeks gestatio n of pregnanc y;Record ed Elsewher e: No Locat ion: [facility] S ource: EHR Education Program Specialist clive: N Practi ce ID: [id number] Jesus lable Time: 03:30:00 PM Gretchen hernandez, [facility] 1 11:03:21 Atypical squamous cells of undeterm ined signific ance on cervical Papanico laou smear [id number] Active 2016 Atyp squam cell of undet signfc cyto smr crvx (ASC-US) ;Recorde d Elsewher e: No [facility]at ion[facility] Practi ce ID: [id number] Jesus lable Time: 01:47:49 PM Not Available [facility] 0 14:34:27 Finding of defecati on Completed 201605/31/2021 Constipa tion, unspecif ied;Prac rhoda ID: 0001 Gretchen hernandez, [facility] 1 11:03:15 Pregnanc y, childbir th and puerperi um finding Completed 201605/31/2021 Oth pregnanc y related conditio ns, first trimeste r;Practi ce ID: 0001 Gretchen hernandez, [facility] 1 11:03:10 Gestatio n period, 11 weeks [id number] Completed 201605/31/2021 11 weeks gestatio n of pregnanc y;Practi ce ID: 0001 Gretchen hernandez, [facility] 1 11:03:24 Rubella screenin g status [id number] Completed 201705/31/2021 Encounte r for antenata l screenin g, unspecif ied;Jared rded Elsewher e: No Locat ion: [facility] S ource: [facility] Education Program Specialist clive: N Practi ce ID: [id number] Jesus lable Time: 01:30:00 PM Gretchen hernandez [facility] 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 0 14:34:26 Pelvic and perineal pain [id number] Completed 201705/31/2021 Pelvic and perineal pain;Rec orded Elsewher e: No Locat ion: [facility] S ource: EHR Education Program Specialist clive: N Practi ce ID: [id number] Jesus lable Time: 02:30:00 PM Gretchen hernandez, [facility] 1 11:03:41 Finding of trunk structur e Completed 201705/31/2021 Oth diseases and conditio ns compl preg/chl dbrth;Pr actice ID: 0001 [facility] 11:06:03 Gestatio n period, 16 weeks [id number] Completed 201705/31/2021 16 weeks gestatio n of pregnanc y;Practi ce ID: 0001 [facility] 11:03:26 Sciatica Completed 201705/31/2021 Sciatica ;Recorde d Elsewher e: No Locat ion: [facility] S ource: EHR Education Program Specialist clive: N Practi ce ID: [id number] Jesus lable Time: 11:30:00 AM Gretchen hernandez [facility] 1 11:03:54 Normal pregnanc y in multigra brett [id number] 4106 Completed 201705/31/2021 Encounte r for supervis ion of other normal pregnanc y, 2nd trimeste r;Record ed Elsewher e: No Locat ion: [facility] S ource: EHR Education Program Specialist clive: N Practi ce ID: [id number] Jesus lable Time: 11:00:00 AM Gretchen hernandez [facility] 1 11:03:38 Antenata l screenin g for malforma tion Completed 201705/31/2021 Encounte r for antenata l screenin g for malforma tions;Re corded Elsewher e: No Locat ion: [facility] S ource: EHR Education Program Specialist clive: Petros Toledo ce ID: [id number] Jesus lable Time: 09:45:00 AM Gretchen hernandez [facility] 1 11:03:07 Antenata l screenin g Completed 201705/31/2021 Encounte r for other antenata l screenin g follow-u p;Record ed Elsewher e: No [facility]: E[facility] Education Program Specialist clive: Petros Toledo ce ID: [id number] Jesus lable Time: 04:30:00 PM Gretchen hernandez [facility] 1 11:03:04 Disorder of pregnanc y Completed 201705/31/2021 Polyhydr amnios, third trimeste r, not applicab le or unsp;Rec orded Elsewher e: No Locat ion: [facility] S ource: EHR Education Program Specialist clive: Petros Toledo ce ID: [id number] Jesus lable Time: 01:45:00 PM Gretchen hernandez [facility] 1 11:03:13 Gestatio n period, 35 weeks [id number] Completed 201705/31/2021 35 weeks gestatio n of pregnanc y;Record ed Elsewher e: No Locat ion: [facility] S ource: EHR Education Program Specialist clive: Petros Toledo ce ID: [id number] Jesus lable Time: 01:45:00 PM Gertchen hernandez [facility] 1 11:03:28 Gestatio n period, 39 weeks [id number] Completed 201705/31/2021 39 weeks gestatio n of pregnanc y;Practi ce ID: 0001 Gretchen hernandez [facility] 1 11:03:29 Uterine scar from previous surgery affectin g pregnanc y [id number] Completed 201705/31/2021 Matern care for low transver se scar from prev del;Prac rhoda ID: 0001 Gretchen hernandez [facility] 1 11:06:06 Steriliz ation procedur e Completed 201705/31/2021 Encounte r for steriliz ation;Pr actice ID: 0001 Gretchen hernandez [facility] 1 11:06:00 Single live from singleto n pregnanc y [id number] Completed 201705/31/2021 Single live ;Pr actice ID: 0001 Gretchen hernandez, [facility] 1 11:03:56 Procedur e on genitour inary system Completed 201705/31/2021 Encounte r for surgical aftcr followin g surgery on the sys;Prac rhoda ID: 0001 Gretchen hernandez [facility] 1 11:03:49 Postoper ative care Completed 201705/31/2021 Encounte r for surgical aftcr followin g surgery on the sys;Prac rhoda ID: 0001 Gretchen hernandez [facility] 1 11:03:43 Human papillom avirus deoxyrib onucleic acid detected , high risk on cervical specimen [id number] Active 2017 Cervical high risk HPV DNA test positive ;Recorde d Elsewher e: No Locat ion: [facility] S ource: EHR Education Program Specialist clive: N Practi ce ID: [id number] Jesus lable Time: 12:33:09 PM Not Available [facility] 0 14:34:28 Lochia finding Completed 201705/31/2021 Encounte r for routine postpart um follow-u p;Practi ce ID: 0001 Grecthen hernandez [facility] 11:03:[address] Concept Completed 201705/31/2021 Encntr for general adult medical exam w/o abnormal findings ;Recorde d Elsewher e: No Locat ion: [facility] S ource: EHR Education Program Specialist clive: N Practi ce ID: [id number] Jesus lable Time: 10:15:00 AM Gretchen hernandez [facility] 11:03:58 Acute vaginiti s [id number] Completed 201705/31/2021 Acute vaginiti s;Practi ce ID: 0001 Gretchen hernandez [facility] 11:03:02 Finding of menstrua l bleeding Completed 201705/31/2021 Excessiv e and frequent menstrua tion with regular cycle;Pr actice ID: 0001 Gretchen hernandez [facility] 11:03:17 Syphilis test finding [id number] Active 2017 Encntr screen for infectio ns w sexl mode of transmis s;Practi ce ID: 0001 Not Available [facility] [address] 14:34:[address] Concept Completed 201705/31/2021 Encntr for matchbook maker exam (general ) (routine ) w/o abn findings ;Practic e ID: 0001 Gretchen hernandez [facility] 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 Procedures Surgical History Date Name Laterality Status Provider Name and Address Organization Details Recorded Time 07/05/20 21 HYSTEROSCOPY, WITH ENDOMETRIAL ABLATION (SURG) completed Rayne Soares [facility] 07/08/2021 10:25:36 04/29/20 20 Date of Last Mammogram completed [facility] 06/22/2021 12:52:36 04/20/20 20 Excision and closure completed Frank Lindsey MD [address], [place], [address], [facility] 04/20/2020 17:05:25 11/08/20 18 Date of Last Pap Smear completed [facility] 05/06/2021 14:44:25 12/03/19 18 Colposcopy completed [facility] 05/06/2021 14:48:18 11/23/19 18 ligation of bilateral fallopian tubes completed [facility] 04/12/2020 10:39:40 delivery completed [facility] 04/12/2020 10:40:36 Colposcopy completed [facility] 06/28/2021 09:45:59 Imaging Results None recorded. Procedure Notes None recorded. Medical Equipment None Reported. Medications Name Sig Start Date Stop Date Status Note LastModified by Organization Details LastModified Time prednison e 10 mg tablet 06/08 completed Not Available Not Available Not Available hydrocodo ne 5 mg-acetam inophen 325 mg tablet TAKE 1 TABLET BY MOUTH EVERY 6 HOURS NEEDED FOR PAIN 06/08 completed Not Available Not Available Not Available prednison e 20 mg tablet TAKE 3 TABLETS BY MOUTH ONCE A DAY FOR 5 DAYS active Not Available Not Available No t Available penicilli n V potassium 500 mg tablet 04/12 completed Not Available Not Available Not Available triamcino lone acetonide 0.1 % topical cream active Not Available Not Available Not Available oxycodone -acetamin ophen 5 mg-325 mg tablet TAKE 1 TABLET BY MOUTH EVERY 6 HOURS 06/08 completed Not Available Not Available Not Available Flagyl 500 mg tablet take 1 tablet by oral route every 12 hours 06/08 completed Prescrib ed Elsewher e: No Locat ion: Kennedi myers [facility] odify By: [email or web address] Encounisidro r DateTime : 11/08/20 18 02:15:00 PM Not Available Not Available Not Available promethaz ine 25 mg tablet take 1 tablet by oral route every 4 - 6 hours as needed 07/19 completed Prescrib ed Elsewher e: No Locat ion: Kennedi myers [facility] odify By: amlaura wright DateTime : 10/20/20 02:45:00 PM Not Available Not Available Not Available hydroxyzi ne HCl 25 mg tablet TK 1 T PO Q 6 TO 8 H FOR ITCHING. MADI 06/08 completed Not Available Not Available Not Available gabapenti n 100 mg capsule take 3 capsule by oral route every day at bedtime 06/08 completed Prescrib ed Elsewher e: Yes Loca tion: Kennedi myers [facility] odify By: amlaura wright DateTime : 07/19/20 18 01:00:00 PM Not Available Not Available Not Available SSD 1 % topical cream APPLY TOPICALL Y TO THE AFFECTED AREA DAILY 06/08 completed Not Available Not Available Not Available Lyrica 25 mg capsule take 1 capsule by oral route 3 times every day 06/08 completed Prescrib ed Elsewher e: Yes Loca tion: [facility] odify By: [email or web address] z Encoun ter DateTime : 11/02/20 18 11:30:00 AM Not Available Not Available Not Available Lyrica 75 mg capsule 04/12 completed Not Available Not Available Not Available chlorhexi dine gluconate 0.12 % mouthwash RINSE WITH 15 ML BY MOUTH TWICE DAILY AFTER BREAKFAS T AND BEFORE BEDTIME 06/08 completed Not Available Not Available Not Available Slow Fe 142 mg (45 mg iron) tablet,ex tended release take 1 Tablet by Oral route every day 07/19 completed Prescrib ed Elsewher e: No Locat ion: [facility] torresify By: wili wright DateTime : 03/26/20 04:14:46 PM Not Available Not Available Not Available 28 mg-800 mcg tablet 06/08 completed Prescrib ed Elsewher e: Yes Loca tion: [facility] odify By: wili morrowunter DateTime : 07/19/20 01:00:00 PM Not Available Not Available Not Available Norlyda 0.35 mg tablet TAKE 1 TABLET BY MOUTH EVERY DAY active Not Available Not Available No t Available Vitals Date Recorded Body height Body mass index (BMI) Body weight Systolic And Diastolic Systolic And Diastolic Provider Name and Address Organization Details Last Updated DateTime 06/08/2021 149.86 cm 21.4 kg/m2 29396.79 g 151/78 mm[Hg] 122/80 mm[Hg] [facility] 10:12:48 Date Recorded Body height Body mass index (BMI) Body weight Systolic And Diastolic Provider Name and Address Organization Details Last Updated DateTime 06/28/2021 149.86 cm 21.6 kg/m2 55103.38 g 110/74 mm[Hg] Gretchen [facility] 06/28/2021 09:45:51 Date Recorded Body height Body mass index (BMI) Body weight Systolic And Diastolic Provider Name and Address Organization Details Last Updated DateTime 07/12/2021 149.86 cm 22 kg/m2 49727.57 g 124/74 mm[Hg] Gretchen [facility] 07/12/2021 09:50:57 Social History Question Answer Notes LastModified by Organizat ion Details LastModified Time Tobacco Smoking Status Never Smoker [facility] 06/28/2021 09:45:56 Do You Have An Advance Directive? No Information n ot available 06/28/2021 Are You Blind Or Do You Have Difficulty Seeing? No Information n ot available 06/28/2021 What Is Your Level Of Caffeine Consumption? Heavy Information not available 06/28/2021 How Much Tobacco Do You Chew? None Information not available 06/28/2021 In The 14 Days Before Symptom Onset, Have You Had Close Contact With A Laboratory-confirm ed COVID-19 While That Case Was Ill? No Information n ot available 06/28/2021 In The 14 Days Before Symptom Onset, Have You Had Close Contact With A Person Who Is Under Investigation For COVID-19 While That Person Was Ill? No Information not available 06/28/2021 Have You Been To An Area Known To Be High Risk For COVID-19? No Information not available 06/28/2021 Are You Deaf Or Do You Have Serious Difficulty Hearing? No Information not available 06/28/2021 What Type Of Diet Are You Following? REGULAR Information n ot available 06/28/2021 What Is The Highest Grade Or Level Of School You Have Completed Or The Highest Degree You Have Received? [id number] Information not available 06/28/2021 Are There Any Guns Present In Your Home? No Information not available 06/28/2021 Do You Use Protection During Sex? No Information not available 06/28/2021 Do You Use Your Seat Belt Or Car Seat Routinely? Yes Information not available 06/28/2021 Do You Have Smoke And Carbon Monoxide Detectors In Your Home? Yes Information not available 06/28/2021 At What Age Did You Start Smoking Tobacco? 16 Information not available 06/28/2021 How Much Tobacco Do You Smoke? 1 PPD Information not available 06/28/2021 Do You Use Sunscreen Routinely? No Information not available 06/28/2021 Have You Used IV Drugs? No Information not available 06/28/2021 Sex: Unknown Functional Status Question Answer Note LastModified by Organizat ion Details LastModified Time Do you use any illicit or recreational drugs? No Information not available 06/28/2021 What is your level of alcohol consumption? None Information not available 06/28/2021 Are you able to walk independently without assistance or assistive devices? YESWOREST Information not available 06/28/2021 What is your occupation? Unemployed Information not available 06/28/2021 Mental Status Question Answer Note LastModified by Organization D etails LastModified Time Do you feel stressed (tense, restless, nervous, or anxious, or unable to sleep at night)? [id number] Information not available 06/28/2021 Family History Nothing Reported. Medical History Condition Response Other Y History of abnormal pap Y Gynecological History Statement/Question Response Abnormal Pap Y Date of Last Mammogram 04/29/2020 Date of LMP 04/06/2020 On BCP's at Conception? Y N Was last menstrual period normal N STIs/STDs N Duration of Flow (days) 11 Current Control Method Tubal Ligat ion Age at First Child 23 Date of control 05/31/2021 Sexually Active? Y Age of first menstrual cycle 12 Date of Last Pap Smear 2018 Sexual Problems? Y Desired Control Method Ablation LMP Unknown N 2018 Obstetrics History GPAL:G 0 P 0 0 0 0 Past Encounters Encounter ID Performer Location Encounter Start Date Encounter Closed Date Diagnosis/Indication Diagnosis SNOMED-CT Code Diagnosis ICD10 Code Diagnosis IMO Codes Diagnosis Note [id number] MD Princess Rosenberg [address] [address] 04/12/2020 10:14:41 04/12/2020 11:15:02 Mass of right breast 5179794558 6016273 N63.10 This patient is a 34-year-ol d female with a lump in the right breast in the superior lateral areola. We agreed to diagnostic mammogram and possibly ultrasound if required. She also has a skin lesion on the left area Alondra. We agreed to biopsy that. She will return in a few days for skin biopsy. [id number] MD Princess Rosenberg [address] [address] 04/20/2020 14:00:21 05/02/2020 12:40:45 Epidermoid cyst [id number] L72.0 The excision of the epidermal cyst in the left areole was completed and she tolerated procedure well. To follow-up on the pathology results. [id number] Frank Lindsey MD [place] [address],[place] [address] 05/03/2020 14:37:16 05/03/2020 16:24:47 Lesion of skin of breast 1339330661 68546 L98.8 Patient is a 34-year-ol d female who had a lesion on the area Julian of the left breast.It was resected and closed with suture. She has some burning at that site. It was examined. There is no evidence of infection. Sutures were removed. There is some scabbing andthe skin waslikely open a small amount.Louisa ppears well-heale d.She likely has some disruption of the nerve that require some healing.Sh eotherwise is doing well. She will follow-up as needed. [id number] Frank Lindsey MD [place] [address],[place] [address] 05/21/2020 15:08:10 05/21/2020 16:12:39 Abscess of skin of breast [id number] 8491778 N61.1 There is a healing subcutaneo us nodule/abs cess of the left nipple. It is very small. It does not appear infected. We will continue to observe. [id number] Frank Lindsey MD [place] [address],[place] [address] 05/31/2021 10:31:23 06/01/2021 09:51:04 Menorrhagia [id number] N92.0 This patient is a 35-year-ol d female with severe menorrhagi a. Her her bleeding is irregular. She has failed other medical treatment options. We discussed all her medical treatment options. Many are not appropriat e due to her smoking status. We have agreed to proceed with endometria l ablation. She had a recent tubal ligation and her periods became very bad /severe after that. They also became very painful. We started progestero ne only contracept ion to temporize her bleeding. She is concerned about sexual transmitte d diseases. , she has irregular bleeding, she has menorrhagi a, Venereal d isease screening 202394921 Z11.3 Sexually t ransmitted infectious disease 6406477 A64 Abnormal u terine bleeding 5675294725 9100 N93.9 [id number] Frank Lindsey MD [place] [address],[place] [address] 06/04/2021 11:31:41 06/04/2021 12:22:40 Menorrhagia [id number] N92.0 This patient is a 35-year-ol d female with severe menorrhagi a. Her her bleeding is irregular. She has failed other medical treatment options. We discussed all her medical treatment options. Many are not appropriat e due to her smoking status. We have agreed to proceed with endometria l ablation. She had a recent tubal ligation and her periods became very bad /severe after that. They also became very painful. We started progestero ne only contracept ion to temporize her bleeding. She is concerned about sexual transmitte d diseases. , she has irregular bleeding, she has menorrhagi a, [id number] Frank Lindsey MD [place] [address],[place] [address] 06/08/2021 09:57:19 06/09/2021 00:18:59 Menorrhagia [id number] N92.0 This patient is a 35-year-ol d female with severe menorrhagi a. we have agreed to perform endometria l ablation. She understand s the risks, benefits, and alternativ es. She has completed the informed consent process and is ready to proceed. [id number] Frank Lindsey MD [place] [address],[place] [address] 06/28/2021 09:35:51 06/28/2021 11:43:36 Menorrhagia 152571253 N92.0 This patient is a 35-year-ol d female with severe menorrhagi a. we have agreed to perform endometria l ablation. She understand s the risks, benefits, and alternativ es. She has completed the informed consent process and is ready to proceed. [id number] Frank Lindsey MD [place] [address],[place] [address] 07/08/2021 10:02:57 07/08/2021 10:04:19 [id number] Frank Lindsey MD [place] [address] [address] 07/12/2021 09:43:51 07/12/2021 10:29:00 Menorrhagia [id number] N92.0 this patient is a 35-year-ol d female who presents for follow-up on menorrhagi a. She underwent an endometria l ablation. She is recovering normally. She has some watery vaginal discharge. She denies any foul-smell ing vaginal discharge. She denies any nausea, vomiting, fever, chills. She will follow up as needed. She return for well-woman exam. Health Concerns Section Related Observation LastModified by Organization Detai ls LastModified Time None Recorded Concern Status LastModified by Organization Details LastModified Time None Recorded Advance Directives Directive N: Payers Insurance Date Sequence Insurance Name Policy Number Policy Abreu Covered Member ID Abreu Member ID Guarantor Name 06/28/2021 1 [facility] PRIOR TO 05/23/2021 (MEDICAID REPLACEMENT - HMO) Gila Elam [id number] Gila Elam 10/04/2021 1 [facility] ON OR AFTER 05/23/21 (MEDICAID REPLACEMENT - HMO) Gila Elam [id number] Gila Elam Notes Date Note Type Note Provider Name and Address Organization Details Recorded Time 06/08/2021 text/html 35-year-old female with severe menorrhagia. We have agreed to perform endometrial ablation. The patient understands the procedure. The procedure was described to the patient in great detail. the patient also understands the risks. The risks were also explained in detail. She understands that injuries May occur during surgery. She understands these injuries can result in hospitalization, more surgery, and severe illness. She understands there is risk of hemorrhage and infection. Frank Lindsey MD [address], [place], [address], [facility] 06/09/2021 09:20:18 06/28/2021 text/html This patient is a 35y/o female with severe menorrhagia. We have agreed to perform endometrial ablation. The patient understands the procedure. The procedure was described to the patient in great detail. the patient also understands the risks. The risks were also explained in detail. She understands that injuries May occur during surgery. She understands these injuries can result in hospitalization, more surgery, and severe illness. She understands there is risk of hemorrhage and infection. Frank Lindsey MD [address], [place], [address], [facility] 06/28/2021 10:07:06 07/12/2021 text/html this patient is a 35-year-old female who presents for follow-up on menorrhagia. She underwent an endometrial ablation. She is recovering normally. She has some watery vaginal discharge. She denies any foul-smelling vaginal discharge. She denies any nausea, vomiting, fever, chills. She will follow up as needed. She return for well-woman exam. Frank Lindsey MD [address], [place], [address], [facility] 07/12/2021 10:22:11 OBGyn Episode Ob Episode Information Episode Created Date Number of Fetuses Patient Bloodtype Patient rh Status Prepregnancy Weight lbs Domestic Partner Domestic Partner Phone Father Name Orthopedic Shoe Maker Status 04/12/20 20 1 CLOSED Fetus Data First Name Last Name Admitted to NICU Weight (g) Sex Living Outcome Pediatric Complications Fetus ID Race Codes Race Delivery Type 2976.47 0704 M Full Term 1626 Primary Clint Calculation Initial Clint Date Initial Exam Date Initial Exam Provider Initial Ultrasound Date Last Menstrual Period Date Ultra Sound Weeks Gestation 0 Eighteen To Twenty Week Clint Update Ultra Sound Date Fundal Height At Umbil Quickening Date Ultra Sound Latest Weeks Gestation Final Clint Confirmed By Final Clint Confirmed Date Final Clint Date Ultra Sound Latest Days Gestation 0 0 Menstrual History Last Menstrual Date Menses Monthly On Bcp Conception Prior Menses Frequency Hcg Plus Date Menarche Onset Age Delivery Information Delivery Date Delivery Type Labor Anesthesia Weeks Gestation Incision Type Labor Labor Length Hrs Delivered By Post Complications Tubal Sterilization Discharge Date Comments 8 GBS positive Discharge Information Feeding Method Contraceptive Method Maternal HG B and HCT Levels Ob Episode Information Episode Created Date Number of Fetuses Patient Bloodtype Patient rh Status Prepregnancy Weight lbs Domestic Partner Domestic Partner Phone Father Name Orthopedic Shoe Maker Status 04/12/20 20 1 CLOSED Fetus Data First Name Last Name Admitted to NICU Weight (g) Sex Living Outcome Pediatric Complications Fetus ID Race Codes Race Delivery Type 3316.66 4704 M Full Term 1625 Primary Clint Calculation Initial Clint Date Initial Exam Date Initial Exam Provider Initial Ultrasound Date Last Menstrual Period Date Ultra Sound Weeks Gestation 0 Eighteen To Twenty Week Clint Update Ultra Sound Date Fundal Height At Umbil Quickening Date Ultra Sound Latest Weeks Gestation Final Clint Confirmed By Final Clint Confirmed Date Final Clint Date Ultra Sound Latest Days Gestation 0 0 Menstrual History Last Menstrual Date Menses Monthly On Bcp Conception Prior Menses Frequency Hcg Plus Date Menarche Onset Age Delivery Information Delivery Date Delivery Type Labor Anesthesia Weeks Gestation Incision Type Labor Labor Length Hrs Delivered By Post Complications Tubal Sterilization Discharge Date Comments 9 38 Pako Discharge Information Feeding Method Contraceptive Method Maternal HG B and HCT Levels Ob Episode Information Episode Created Date Number of Fetuses Patient Bloodtype Patient rh Status Prepregnancy Weight lbs Domestic Partner Domestic Partner Phone Father Name Orthopedic Shoe Maker Status 04/12/20 20 1 CLOSED Fetus Data First Name Last Name Admitted to NICU Weight (g) Sex Living Outcome Pediatric Complications Fetus ID Race Codes Race Delivery Type 2636.27 6704 M Full Term 1624 Repeat Clint Calculation Initial Clint Date Initial Exam Date Initial Exam Provider Initial Ultrasound Date Last Menstrual Period Date Ultra Sound Weeks Gestation 0 Eighteen To Twenty Week Clint Update Ultra Sound Date Fundal Height At Umbil Quickening Date Ultra Sound Latest Weeks Gestation Final Clint Confirmed By Final Clint Confirmed Date Final Clint Date Ultra Sound Latest Days Gestation 0 0 Menstrual History Last Menstrual Date Menses Monthly On Bcp Conception Prior Menses Frequency Hcg Plus Date Menarche Onset Age Delivery Information Delivery Date Delivery Type Labor Anesthesia Weeks Gestation Incision Type Labor Labor Length Hrs Delivered By Post Complications Tubal Sterilization Discharge Date Comments 3 38 Mauricio Emergency c/s heart rate dropped. Discharge Information Feeding Method Contraceptive Method Maternal HG B and HCT Levels Ob Episode Information Episode Created Date Number of Fetuses Patient Bloodtype Patient rh Status Prepregnancy Weight lbs Domestic Partner Domestic Partner Phone Father Name Orthopedic Shoe Maker Status 04/12/20 20 1 CLOSED Fetus Data First Name Last Name Admitted to NICU Weight (g) Sex Living Outcome Pediatric Complications Fetus ID Race Codes Race Delivery Type , Spontane ous [id number] Clint Calculation Initial Clint Date Initial Exam Date Initial Exam Provider Initial Ultrasound Date Last Menstrual Period Date Ultra Sound Weeks Gestation 0 Eighteen To Twenty Week Clint Update Ultra Sound Date Fundal Height At Umbil Quickening Date Ultra Sound Latest Weeks Gestation Final Clint Confirmed By Final Clint Confirmed Date Final Clint Date Ultra Sound Latest Days Gestation 0 0 Menstrual History Last Menstrual Date Menses Monthly On Bcp Conception Prior Menses Frequency Hcg Plus Date Menarche Onset Age Delivery Information Delivery Date Delivery Type Labor Anesthesia Weeks Gestation Incision Type Labor Labor Length Hrs Delivered By Post Complications Tubal Sterilization Discharge Date Comments 8 twins 6- 8 weeks Discharge Information Feeding Method Contraceptive Method Maternal HG B and HCT Levels
[2025-11-18 17:20] VITALS: BP 118/60; PULSE 85; RESP 16; TEMP 36.6; O2SAT 100
--- NOTE | 2025-11-18 17:32 | ED.GENADULT ---
HPI - General Adult General Chief complaint: Urogenital-Female Stated complaint: Cramping bad/needs work note Time Seen by Provider: 11/18/25 17:25 Source: patient and RN notes reviewed Mode of arrival: ambulatory Limitations: no limitations History of Present Illness HPI narrative: 40-year-old female presents Express Care complaining of menstrual cramping. Patient says she is currently on her period. Patient has been taking Tylenol and ibuprofen with some relief. Patient has history of of an ablation it has helped with her menstrual bleeding however the cramps are getting worse. Patient has a follow-up with her OBGYN. Patient is here because she needs a work note to she called off for the pain. Patient denies any other symptoms, Related Data Home Medications ?Medication ?Instructions ?Recorded ?Confirmed ?Last Taken ?Type No Home Medications 11/18/25 11/18/25 Unknown History Allergies Allergy/AdvReac Type Severity Reaction Status Date / Time No Known Allergies Allergy Unknown Verified 11/18/25 17:21 Review of Systems Review of Systems: CONSTITUTIONAL: Denies fever, chills, or sweats. EYES: Denies visual changes, redness, or discharge. ENT: Denies rhinorrhea, congestion, sore throat, or otalgia. CARDIOVASCULAR: Denies chest pain, palpitations, or edema. RESPIRATORY: Denies cough or dyspnea. GASTROINTESTINAL: Denies abdominal pain, nausea, vomiting, or diarrhea. Positive for abdominal cramping. GENITOURINARY: Denies dysuria or hematuria. Positive for vaginal bleeding. SKIN: Denies rash or itching. MUSCULOSKELETAL: Denies back pain, joint pain, or myalgia. NEUROLOGIC: Denies headache, numbness, or weakness. PSYCHIATRIC: Denies anxiety or depression. All other systems reviewed are negative, except as documented in HPI. [facility] Past Medical History Medical History Anxiety Anemia Surgical History Surgical History History of tubal ligation Social History Social History Smoking packs per day: 1 Smoking cigarettes per day: 20.0 Years smoked: 16 Smoking pack-years: 16.00 Smoking status: Current every day smoker Tobacco type: cigarettes Second hand tobacco smoke exposure: Yes Alcohol use details: occasional Substance use: current Substance use type: marijuana Other substance usage details: occasional Last use: 06-11-2021 Living arrangements: with family Spiritual care concerns: No Comments At the time of my signature, I reviewed and agree with the nursing past medical, surgical, social, and family history. There is no relevant family history pertinent to the patient complaint. Exam Narrative: GENERAL: This is a well-nourished, well-developed adult, in no apparent distress. They are non ill-appearing, nontoxic appearing. HEAD: normocephalic, atraumatic. EYES: Sclera clear/white. Conjunctiva normal. Vision is grossly intact. Extraocular movements intact EARS: External ears normal,Hearing grossly intact. NOSE: External nose normal THROAT: Mucous membranes moist, NECK: Neck supple, CARDIOVASCULAR: Regular rate and rhythm without murmurs, gallops, or rubs. RESPIRATORY: Clear to auscultation. Breath sounds equal bilaterally. No wheezes, rales, or rhonchi. GASTROINTESTINAL: Abdomen soft, non-tender, nondistended. Bowel sounds are active. No hepato-splenomegaly, or palpable masses. No guarding or rigidity. No rebound tenderness. SKIN: warm, Dry, intact with no suspicious lesions or rash, good texture and turgor. NEURO: awake, alert, and oriented to person, place and time. There were no obvious focal neurologic abnormalities. EXTREMITIES: No joint tenderness, effusion, or edema noted. BACK: Nontender without deformity. Course Course Level of Care: Express Care Visit Vital Signs Vital signs: Vital Signs Temperature 97.8 F 11/18/25 17:20 Pulse Rate 85 11/18/25 17:20 Respiratory Rate 16 11/18/25 17:20 Blood Pressure 118/60 11/18/25 17:20 Pulse Oximetry 100 11/18/25 17:20 Oxygen Delivery Room Air 11/18/25 17:20 Temperature 97.8 F 11/18/25 17:20 Pulse Rate 85 11/18/25 17:20 Respiratory Rate 16 11/18/25 17:20 Blood Pressure 118/60 11/18/25 17:20 Pulse Oximetry 100 11/18/25 17:20 Oxygen Delivery Room Air 11/18/25 17:20 [facility] MDM Narrative Medical decision making narrative: Patient nontoxic appearing, no apparent distress, pain is manageable with Tylenol and ibuprofen. Patient likely has dysmenorrhea, patient is a were no for calling off today to the pain. Patient has follow-up with OBGYN. Discussed supportive care. Work Note given. Discussed physical exam findings. Advised supportive measures and signs/symptoms to go to the ER. Pt is appropriate for outpt treatment and f/u. Differential Diagnosis Differential Diagnosis: Dysmenorrhea, menorrhagia, abdominal cramps, period Cramps Critical Care Time Critical Care Time Critical Care Time: No Discharge Plan Discharge Clinical Impression: Dysmenorrhea Patient Disposition: Home Condition: Stable Instructions: Dysmenorrhea (ED) Additional Instructions: You may take ibuprofen 600 mg to 800 mg every 6-8 hours. Do not exceed more than 800 mg of ibuprofen per dose. Do not exceed more than 3200 mg ibuprofen in a day. You may take up to 1000 mg Tylenol every 6-8 hours. Do not exceed 1000 mg per dose, do exceed more than 4000 mg of Tylenol in a day. May also use a heating pad to help with menstrual cramping. Follow-up with your OBGYN in 3-5 days. Go to the ER for any severe uncontrolled pain, fevers, passing large blood clots, going through 1 pad an hour. Patient Language: Divehi Prescriptions: No Action No Home Medications Follow-up/Referrals: PHYSICIAN,[employer] [Primary Care Provider, Internal Medicine] Stand Alone Forms: Work/School Release IP Time of Disposition: 17:31
== END 2025-11-18 17:36 | disposition home or self-care (01) ==
DX: N94.6 Dysmenorrhea, unspecified (principal); F17.210 Nicotine dependence, cigarettes, uncomplicated
CPT/HCPCS: 99211; G0463